=== PATIENT | male | born 1965 | race Caucasian/White ===

== ENCOUNTER 2017-11-03 02:53 | Emergency (ER) | payer OTHER ==
[~2017-11-03] VITALS: Ht 177.8 cm; Wt 105.1 kg
[~2017-11-03 02:53] MED LIST: states no home meds
[2017-11-03 02:58] VITALS: TEMP 37; Ht 177.8 cm; Wt 105.1 kg
[2017-11-03] MEDS ORDERED: IBUPROFEN 200 MG/10 ML UDC PO STA (03:09)
[2017-11-03] MEDS ORDERED: ACETAMINOPHEN SUSP 160 MG/5 ML UDC PO ONE (03:15)
[2017-11-03 04:27] VITALS: BP 143/89; PULSE 101; O2SAT 96
--- NOTE | 2017-11-03 06:40 | DIAGNOSTIC IMAGING REPORT ---
R SHOULDER MIN 2 VIEWS ROUTINE HISTORY: 52 years-old Male right shoulder injury acute right shoulder pain COMPARISON: Chest 9 radiograph 03/15/2017 TECHNIQUE: 2 views of the right shoulder FINDINGS: Mild degenerative changes of the glenohumeral and AC joints. Mild spurring of the greater tuberosity. No acute fracture or dislocation. Imaged lung gutierrez and soft tissues are unremarkable. IMPRESSION: Mild degenerative changes without acute fracture or dislocation. The above report was generated using voice recognition software. It may contain grammatical, syntax or spelling errors. Electronically signed by: Ty Sheldon M.D. 11/03/2017 6:39 AM Dictated Date/Time: 11/03/2017 6:38 AM
--- NOTE | 2017-11-03 23:46 | EMERGENCY ROOM VISIT NOTE ---
ED Visit Note First contact with patient: 03:01 CHIEF COMPLAINT: Shoulder pain HISTORY OF PRESENT ILLNESS: This 52 year old male patient presents to the emergency department complaining of pain in the right shoulder for the past few hours. The patient states that he was lifting a box at work when he began having pain in the right shoulder. He is having difficulty with range of motion because of the pain. The pain is moderate, constant and increases with motion of the hand and arm. The patient states the pain is dull and 6/10. The patient has taken nothing for relief of the pain. No previous significant previous shoulder disease or injury. No numbness or tingling. No neck and no back pain. No chest pain or shortness of breath. No abdominal pain or nausea/ vomiting. No cough. REVIEW OF SYSTEMS: A 6 system review of systems was performed with positives and pertinent negatives in the HPI. ALLERGIES: No known allergies MEDICATIONS: See EMR PMH: See EMR SOCIAL HISTORY: Employed and lives locally PHYSICAL EXAM: Vital Signs: Reviewed nurse's notes, vital signs stable. GENERAL : White male, in no acute distress, but appears to be in pain, well-developed, well-nourished. MUSCULOSKELETAL: There is no deformity in the contour of the right shoulder and there are no yfn deformities noted. There is no sulcus sign. There is tenderness over the infraspinatus distribution. The patient's range of motion is limited with abduction and external rotation. Supraspinatus strength 3/5. There is no clavicle tenderness. No tenderness of the humerus, elbow, wrist, or hand. 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 Radial pulse 2+. NECK: No tenderness to palpation over the cervical spine. HEART: Regular rate and rhythm without murmurs gallops or rubs. LUNGS: Clear to auscultation bilaterally without wheezes, rales or rhonchi. No accessory muscle use. No retractions. NEURO: The patient is alert and oriented to person, place, and time. Normal sensation to light and sharp touch. Capillary refill less than 2 seconds. R SHOULDER MIN 2 VIEWS ROUTINE HISTORY: 52 years-old Male right shoulder injury acute right shoulder pain COMPARISON: Chest 9 radiograph 03/15/2017 TECHNIQUE: 2 views of the right shoulder FINDINGS: Mild degenerative changes of the glenohumeral and AC joints. Mild spurring of the greater tuberosity. No acute fracture or dislocation. Imaged lung gutierrez and soft tissues are unremarkable. IMPRESSION: Mild degenerative changes without acute fracture or dislocation EMERGENCY DEPARTMENT COURSE: Physical exam and history were performed. Nursing notes and EMR were reviewed. The patient appears to have right shoulder pain after lifting at work. X-ray was obtained and does not show acute fracture or dislocation. The patient was placed in an arm sling and given ibuprofen and Tylenol for comfort. He appears well for discharge home, and will need to follow with Workmen's Compensation for ongoing care and evaluation. He was otherwise invited back to the ER with any new, worsening, or concerning symptoms. Current/Historical Medications Miscellaneous Medications [states no home meds] Allergies Coded Allergies: No Known Allergies (Unverified , 03/15/12) Vital Signs Date Time Temp Pulse Resp B/P (MAP) Pulse Ox O2 Delivery O2 Flow Rate FiO2 11/03/17 04:27 101 16 143/89 96 Room Air 11/03/17 02:58 37.0 112 19 150/95 96 Room Air Medications Administered Medications (Trade) Dose Ordered Sig/Mariposa Route Start Time Stop Time Status Last Admin Dose Admin Acetaminophen (Tylenol Children'S Susp) 640 mg NOW ONCE PO 11/03/17 03:15 11/03/17 03:16 DC 11/03/17 03:22 640 MG Ibuprofen (Motrin Susp) 400 mg NOW STAT PO 11/03/17 03:09 11/03/17 03:11 DC 11/03/17 03:21 400 MG Departure Information Impression Primary Impression: Injury of right shoulder Dispostion Home / Self-Care Condition GOOD Forms HOME CARE DOCUMENTATION FORM, Work Instructions, Additional Instructions: Patient was seen and evaluated today in the emergency department fo medical care. May not use right arm until cleared by Workmen' Compensation. IMPORTANT VISIT INFORMATION Patient Instructions My [facility] Additional Instructions You were seen and evaluated today on an emergency basis only. This is not a substitute for, or an effort to provide, complete comprehensive medical care. It is not possible to recognize and treat all injuries or illnesses in a single emergency department visit. For this reason it is recommended that you followup with your Workmen's Compensation provider for ongoing care and evaluation. For baseline pain relief you may alternate ibuprofen and acetaminophen every 4 hours for pain control. Take 600 mg ibuprofen (Advil) and then 4 hours later take 1000 mg acetaminophen (Tylenol). Do not take more than 3000 mg acetaminophen in a single day. Use your arm sling for comfort. You are welcome to return to the emergency department anytime with new, worsening, or concerning symptoms. Work Instructions Additional Work Instructions: Patient was seen and evaluated today in the emergency department for medical care. May not use right arm until cleared by Workmen's Compensation.
== END 2017-11-03 04:30 | disposition home or self-care (01) ==
LOC: C.EDB 02:55 → C.EDA 04:30
DX: S49.91XA Unspecified injury of right shoulder and upper arm, initial encounter (principal); X58.XXXA Exposure to other specified factors, initial encounter; Y93.89 Activity, other specified; Y99.0 Civilian activity done for income or pay

== ENCOUNTER 2021-04-23 11:03 | Inpatient (IN) ==
[2021-04-23 11:46] LABS: Basophils # (auto) 0.02 K/uL (0-0.2); Basophils % (auto) 0.3 %; Eosinophils % (auto) 1.3 %; Hematocrit (blood only) 44.1 % (42-52); Hemoglobin 15.5 g/dL (14.0-18.0); Immature Granulocytes # (auto) 0.03 K/uL (0.00-0.02); Immature Granulocytes % (auto) 0.4 %; Lymphocytes # (auto) 2.73 K/uL (1.2-3.4); Lymphocytes % (auto) 34.3 %; Mean Corpuscular Hemoglobin 32.6 pg (25-34); Mean Corpuscular Hgb Conc 35.1 g/dL (32-36); Mean Corpuscular Volume 92.8 fL (80-100); Mean Platelet Volume 9.9 fL (7.4-10.4); Monocytes # (auto) 0.72 K/uL (0.11-0.59); Neutrophils # (auto) 4.37 K/uL (1.4-6.5); Neutrophils % (auto) 54.7 %; Platelet Count 250 K/uL (130-400); RDW Coefficient of Variation 13.1 % (11.5-14.5); RDW Standard Deviation 44.9 fL (36.4-46.3); Red Blood Count 4.75 M/uL (4.7-6.1); White Blood Count 7.97 K/uL (4.8-10.8)
[2021-04-23 12:08] LABS: Alanine Aminotransferase 36 U/L (12-78); Albumin Level 3.9 gm/dl (3.4-5.0); Aspartate Aminotransferase 23 U/L (15-37); BUN Creatinine Ratio 16.1 (10-20); Blood Urea Nitrogen 13 mg/dl (7-18); Calcium 9.3 mg/dl (8.5-10.1); Carbon Dioxide 26 mmol/L (21-32); Chloride 108 mmol/L (98-107); Creatinine Clr Calc Pharmacy 123.6 ml/min; Est GFR (African American) 115.1 ml/min; Est GFR (Non-African American) 99.4 ml/min; Glucose 115 mg/dl (70-99); Potassium 3.5 mmol/L (3.5-5.1); Sodium 140 mmol/L (136-145)
[2021-04-23] MEDS ORDERED: SODIUM CHLORIDE 0.9% 1000ML 2,000 ML IV ONE (12:11)
[2021-04-23] MEDS ORDERED: MECLIZINE HCL 25 MG TAB PO STA (12:13)
--- NOTE | 2021-04-23 12:17 | Emergency Department Note ---
Impression & Plan CVA (cerebral vascular accident), HTN (hypertension), High serum chloride ED Provider Note NAME: ASTER HAGAN AGE: 55 SEX: M : 1965 ARRIVES VIA: Walk-In INFORMANT: Patient ED PROVIDER(S): Brooks Bryan DO CHIEF COMPLAINT: Dizzy HPI: Patient is a 55-year-old male who presents to the ER for dizziness. This started yesterday around 8 PM when he woke up from sleeping. He took his lisinopril around 2 PM[address] works ct mri technologist. Dizziness has been persistent and is worse with movement. He notes he has trouble following anything. He does admit to nausea but no vomiting. Denies any weakness or numbness in the arms or legs. He notes that his head feels like a 50 pound weight. Denies any chest pain and shortness of breath. No dysuria, urgency or frequency. No trauma. No other exacerbating or remitting factors. Denies ringing in the ears. ROS: See above HPI for pertinent positives & negatives. A total of 10 systems reviewed and were otherwise negative. PAST MEDICAL HISTORY:See Below PAST SURGICAL HISTORY:See Below FAMILY HISTORY:See Below SOCIAL HISTORY:See Below HOME MEDICATIONS:See Below ALLERGIES:See Below VITALS:See Below PHYSICAL EXAMINATION: GENERAL: Sitting up in bed, alert, well appearing, well nourished, no distress, non-toxic EYE EXAM: normal conjunctiva. PERRL and nystagmus and difficulty following figners OROPHARYNX: no exudate, no erythema, lips, buccal mucosa, and tongue normal and mucous membranes are moist NECK: supple, no nuchal rigidity, no adenopathy, non-tender LUNGS: Clear to auscultation. Normal chest wall mechanics HEART: no murmurs, S1 normal and S2 normal ABDOMEN: abdomen soft, non-tender, normo-active bowel sounds, no masses, no rebound or guarding. BACK: Back is symmetrical on inspection and there is no deformity, no midline tenderness, no CVA tenderness. SKIN: no rashes and no bruising UPPER EXTREMITIES: upper extremities are grossly normal. LOWER EXTREMITIES: No pitting edema. NEURO EXAM: Normal sensorium, cranial nerves II-XII intact, normal speech, no weakness of arms, no weakness of legs. No drift. Finger to nose intact. Gross sensation intact. Qyfr-[id number] intact. Rapid alternating movements of upper extremities intact. MEDICAL DECISION MAKING: Patient is a 55-year-old male who presents the ER for dizziness. IV was established blood work was obtained. Symptoms have been present for over 24 hours. Labs show no significant leukocytosis or anemia. INR was unremarkable. BMP with slightly elevated chloride. LFTs bilirubin was unremarkable. TSH was unremarkable. Troponin was negative. Covid was negative. CT of the head neck suggest a cerebellar stroke which is consistent with physical exam. He was given Valium and Antivert and fluids. He was updated bedside. Discussed with the hospitalist for further evaluation. Triage Nursing notes reviewed. Limited review of prior medical records performed Vital Signs: reviewed and remarkable for HTN Differential diagnosis: Differential diagnosis includes etiologies such as benign positional vertigo, dehydration, hypovolemia, anemia, tumor, infection, hypoglycemia, electrolyte abnormalities, cardiac sources, intracerebral event, toxicologic, neurological, as well as others were entertained. ER treatment provided: See below Diagnostics interpreted by me: ECG: Sinus rhythm at 72 Normal axis No PVCs QTC 427 Cardiac Monitoring: An order was placed for continuous cardiac monitoring. The monitor shows a rate of 70 with sinus rhythm. Laboratory studies: As stated above and show below. Imaging studies: CT angios the head and neck show cerebellar infarct Consultation(s): Discussed with the hospitalist for further evaluation Procedures: none Critical Care: None Past Med/Surg History Medical History (Updated 04/23/21 @ 18:12 by Brooks Bryan DO) HLD (hyperlipidemia) HTN (hypertension) IBS (irritable bowel syndrome) Pre-diabetes Surgical History (Updated 04/23/21 @ 13:56 by Sabrina Solitario PA-C) History of colonoscopy Family History (Updated 04/23/21 @ 14:28 by Sabrina Solitario PA-C) Father Hypertension Social History (Updated 04/23/21 @ 14:28 by Sabrina Solitario PA-C) Smoking Status: Never smoker Second Hand Exposure: No; Do You Dip or Chew Tobacco: No; Tobacco Cessation Education Requested by Patient: No Hx Alcohol Use: No Hx Substance Use: No Preferred Language: Swedish Communication Ability: Effective Bedspread Seamer Required: No Beliefs That Will Affect Care: None Current Living Situation: Alone Other Information That Helps Us Care for You: No Feels Safe at Home: Yes Safety Concerns: Feels Safe At This Time Assistive Devices: None Allergies Allergies Allergy/AdvReac Type Severity Reaction Status Date / Time No Known Allergies Allergy Unverified 04/23/21 12:07 Home Meds Home Medications Medication Instructions Recorded Confirmed losartan-hydrochlorothiazide 1 tab PO DAILY 04/23/21 04/23/21 Results & Data (ED) Vital Signs Vital Signs - 24 hr 04/23/21 11:19 04/23/21 11:37 04/23/21 12:21 Temperature 36.5 C Temperature Source Oral Pulse Rate - Lying Pulse Rate - Sitting Pulse Rate - Standing Pulse Rate 64 79 70 Pulse Rate from SpO2 Sensor 79 70 Pulse Rhythm Regular Pulse Strength Normal Respiratory Rate 20 30 H 29 H Respiratory Effort / Characteristics Non-Labored Spontaneous Respiratory Depth Normal Respiratory Pattern Regular Blood Pressure - Lying Blood Pressure - Sitting Blood Pressure- Standing Blood Pressure 160/96 H 166/97 H 142/87 H Blood Pressure Mean 117 120 105 Pulse Oximetry 100 100 100 Oxygen Delivery Method Room Air Room Air Room Air Sepsis Recent Fever Within 48 Hours No Sepsis New/Unexplained Change in Mental Status N/A Sepsis Action Taken by Nursing No Action Required 04/23/21 12:40 04/23/21 13:00 04/23/21 13:30 Temperature Temperature Source Pulse Rate - Lying Pulse Rate - Sitting Pulse Rate - Standing Pulse Rate 72 65 52 L Pulse Rate from SpO2 Sensor 72 65 51 L Pulse Rhythm Pulse Strength Respiratory Rate 23 19 10 L Respiratory Effort / Characteristics Respiratory Depth Respiratory Pattern Blood Pressure - Lying Blood Pressure - Sitting Blood Pressure- Standing Blood Pressure 159/96 H 160/90 H 163/81 H Blood Pressure Mean 117 113 108 Pulse Oximetry 100 100 95 Oxygen Delivery Method Room Air Room Air Room Air Sepsis Recent Fever Within 48 Hours Sepsis New/Unexplained Change in Mental Status Sepsis Action Taken by Nursing 04/23/21 13:40 04/23/21 13:41 Temperature Temperature Source Pulse Rate - Lying 64 Pulse Rate - Sitting 73 Pulse Rate - Standing 74 Pulse Rate 68 Pulse Rate from SpO2 Sensor 70 Pulse Rhythm Pulse Strength Respiratory Rate 21 Respiratory Effort / Characteristics Respiratory Depth Respiratory Pattern Blood Pressure - Lying 161/90 H Blood Pressure - Sitting 164/98 H Blood Pressure- Standing 162/103 H Blood Pressure 161/90 H Blood Pressure Mean 113 Pulse Oximetry 100 Oxygen Delivery Method Room Air Sepsis Recent Fever Within 48 Hours Sepsis New/Unexplained Change in Mental Status Sepsis Action Taken by Nursing Laboratory Data Result diagrams: 04/23/21 11:36 04/23/21 11:36 Lab Results 04/23/21 04/23/21 04/23/21 Range/Units 11:36 11:36 12:46 WBC 7.97 (4.8-10.8) K/uL RBC 4.75 (4.7-6.1) M/uL Hgb 15.5 (14.0-18.0) g/dL Hct 44.1 (42-52) % MCV 92.8 (80-100) fL MCH 32.6 (25-34) pg MCHC 35.1 (32-36) g/dL RDW Std Deviation 44.9 (36.4-46.3) fL RDW Coeff of Dinesh 13.1 (11.5-14.5) % Plt Count 250 (130-400) K/uL MPV 9.9 (7.4-10.4) fL Immature Gran % (Auto) 0.4 % Neut % (Auto) 54.7 % Lymph % (Auto) 34.3 % Hendry % (Auto) 9.0 % Eos % (Auto) 1.3 % Baso % (Auto) 0.3 % Neut # (Auto) 4.37 (1.4-6.5) K/uL Lymph # (Auto) 2.73 (1.2-3.4) K/uL Hendry # (Auto) 0.72 H (0.11-0.59) K/uL Eos # (Auto) 0.10 (0-0.5) K/uL Baso # (Auto) 0.02 (0-0.2) K/uL Immature Gran # (Auto) 0.03 H (0.00-0.02) K/uL PT 10.4 (9.0-12.0) Seconds INR 1.0 (0.9-1.1) Sodium 140 (136-145) mmol/L Potassium 3.5 (3.5-5.1) mmol/L Chloride 108 H (98-107) mmol/L Carbon Dioxide 26 (21-32) mmol/L Anion Gap 6.0 (3-11) BUN 13 (7-18) mg/dl Creatinine 0.81 (0.6-1.4) mg/dl Est Cr Clr Drug Dosing 123.6 ml/min Est GFR ( Amer) 115.1 ml/min Est GFR (Non-Af Amer) 99.4 ml/min BUN/Creatinine Ratio 16.1 (10-20) Glucose 115 H (70-99) mg/dl Calcium 9.3 (8.5-10.1) mg/dl Total Bilirubin 0.2 (0.2-1) mg/dl AST 23 (15-37) U/L ALT 36 (12-78) U/L Alkaline Phosphatase 61 (45-117) U/L Troponin I < 0.015 (0-0.045) ng/ml Total Protein 7.7 (6.4-8.2) gm/dl Albumin 3.9 (3.4-5.0) gm/dl Globulin 3.8 (2.5-4.0) gm/dl Albumin/Globulin Ratio 1.0 (0.9-2) TSH 2.010 (0.300-4.500) uIu/ml COVID-19 Eval Order SARS-CoV-2 (PCR) (Negative) 04/23/21 04/23/21 Range/Units 13:36 13:36 WBC (4.8-10.8) K/uL RBC (4.7-6.1) M/uL Hgb (14.0-18.0) g/dL Hct (42-52) % MCV (80-100) fL MCH (25-34) pg MCHC (32-36) g/dL RDW Std Deviation (36.4-46.3) fL RDW Coeff of Dinesh (11.5-14.5) % Plt Count (130-400) K/uL MPV (7.4-10.4) fL Immature Gran % (Auto) % Neut % (Auto) % Lymph % (Auto) % Hendry % (Auto) % Eos % (Auto) % Baso % (Auto) % Neut # (Auto) (1.4-6.5) K/uL Lymph # (Auto) (1.2-3.4) K/uL Hendry # (Auto) (0.11-0.59) K/uL Eos # (Auto) (0-0.5) K/uL Baso # (Auto) (0-0.2) K/uL Immature Gran # (Auto) (0.00-0.02) K/uL PT (9.0-12.0) Seconds INR (0.9-1.1) Sodium (136-145) mmol/L Potassium (3.5-5.1) mmol/L Chloride (98-107) mmol/L Carbon Dioxide (21-32) mmol/L Anion Gap (3-11) BUN (7-18) mg/dl Creatinine (0.6-1.4) mg/dl Est Cr Clr Drug Dosing ml/min Est GFR ( Amer) ml/min Est GFR (Non-Af Amer) ml/min BUN/Creatinine Ratio (10-20) Glucose (70-99) mg/dl Calcium (8.5-10.1) mg/dl Total Bilirubin (0.2-1) mg/dl AST (15-37) U/L ALT (12-78) U/L Alkaline Phosphatase (45-117) U/L Troponin I (0-0.045) ng/ml Total Protein (6.4-8.2) gm/dl Albumin (3.4-5.0) gm/dl Globulin (2.5-4.0) gm/dl Albumin/Globulin Ratio (0.9-2) TSH (0.300-4.500) uIu/ml COVID-19 Eval Order Covid19 at [facility] SARS-CoV-2 (PCR) NEGATIVE (Negative) Administered Medications Discontinued Medications Aspirin (Aspirin 81 Mg Chew) 324 mg PO NOW STA Stop: 04/23/21 14:18 Last Admin: 04/23/21 15:01 Dose: 324 mg Documented by: [id number] Diazepam (Diazepam 5 Mg/Ml Inj 10ml Vial) 2 mg IV NOW STA Stop: 04/23/21 12:14 Last Admin: 04/23/21 12:29 Dose: 2 mg Documented by: [id number] Sodium Chloride (Nss 1000ml) 2,000 mls @ 999 mls/hr IV .Q2H1M ONE Stop: 04/23/21 14:11 Last Infusion: 04/23/21 14:34 Dose: 0 mls/hr Documented by: [id number] Admin: 04/23/21 12:29 Dose: 999 mls/hr Documented by: [id number] Ioversol (Optiray 320 125ml) 120 ml IV ONCE ONE Stop: 04/23/21 12:32 Last Admin: 04/23/21 12:31 Dose: 120 ml Documented by: [id number] Meclizine HCl (Meclizine Hcl 25 Mg Tab) 25 mg PO NOW STA Stop: 04/23/21 12:14 Last Admin: 04/23/21 12:29 Dose: 25 mg Documented by: [id number] Imaging Data Radiologist's Impression: Chest X-Ray 04/23/21 12:11 XR chest 1V portable HISTORY: 55 years-old Male dizzy acute dizziness COMPARISON: Chest radiograph 03/15/2012 TECHNIQUE: Portable AP view the chest FINDINGS: Cardiomediastinal and hilar silhouettes are within normal limits. No pneumothorax, pleural effusion, airspace consolidation or overt pulmonary edema. The bones of the chest appear grossly intact. IMPRESSION: No acute process. ACT 112: Negative or not required by law. The above report was generated using voice recognition software. It may contain grammatical, syntax or spelling errors. Electronically signed by: Tuan Sheldon M.D. 04/23/2021 12:55 PM Head CTA 04/23/21 12:11 CT angio neck with con, CT angio head wo/w CLINICAL HISTORY: 55 years-old Male with dizzy. Acute dizziness COMPARISON STUDY: None TECHNIQUE: Following the IV administration of 120 mL of Optiray, CT angiogram of the head and neck was performed from the aortic arch to the skull apex. Images are reviewed in the axial, sagittal, and coronal planes. 3-D MIPS images are created and assessed. IV contrast was administered without complication. All measurements were calculated based on NASCET criteria. Noncontrast head CT also obtained. A dose lowering technique was utilized adhering to the principles of ALARA. CT DOSE: 1267.00 mGy.cm FINDINGS: CT HEAD: No acute intracranial hemorrhage, midline shift, abnormal extra-axial collection, hydrocephalus, acute territorial infarct or intracranial mass. Cerebral vascular calcifications. There is an ill-defined 6 mm hypodense focus of the left cerebellar hemisphere. No acute calvarial fracture. The mastoid air cells and middle ear cavities are clear. Polypoid mucosal thickening of the left maxillary sinus measures 2 cm. Unremarkable soft tissues and orbits. CTA HEAD AND NECK: Three-vessel morphology of the thoracic aortic arch. Patency of the innominate and imaged subclavian arteries. Patent common carotid arteries. Mild atheros clerotic plaque of the left carotid bulb without significant stenosis. The internal carotid arteries are patent. Mild calcified plaque of the clinoid and supraclinoid segments. The middle and anterior cerebral arteries are patent. Codominant and widely patent vertebral arteries. Focal area of atherosclerotic plaque involves the V2 segment left vertebral artery at the level of C3 resulting in mild luminal narrowing. Additional atherosclerotic plaque involves the V4 segment left vertebral artery without significant stenosis. The basilar and posterior cerebral arteries are patent. Cerebral venous sinuses are patent. There is no abnormal intracranial enhancement identified. Lung apices are clear. Unremarkable soft tissues. Degenerative changes of the spine. IMPRESSION: 1. No acute intracranial hemorrhage, midline shift or acute territorial infarct. 2. Subcentimeter hypodensity of the left cerebellar hemisphere is suggestive of an age-indeterminate lacunar infarct. 3. Mild atherosclerotic vascular disease. No aneurysm, dissection, high-grade stenosis or arterial occlusion 4. Maxillary sinus disease. ACT 112: Negative or not required by law. The above report was generated using voice recognition software. It may contain grammatical, syntax or spelling errors. Electronically signed by: Tuan Sheldon M.D. 04/23/2021 12:54 PM Neck CTA 04/23/21 12:11 CT angio neck with con, CT angio head wo/w CLINICAL HISTORY: 55 years-old Male with dizzy. Acute dizziness COMPARISON STUDY: None TECHNIQUE: Following the IV administration of 120 mL of Optiray, CT angiogram of the head and neck was performed from the aortic arch to the skull apex. Images are reviewed in the axial, sagittal, and coronal planes. 3-D MIPS images are created and assessed. IV contrast was administered without complication. All measurements were calculated based on NASCET criteria. Noncontrast head CT also obtained. A dose lowering technique was utilized adhering to the principles of ALARA. CT DOSE: 1267.00 mGy.cm FINDINGS: CT HEAD: No acute intracranial hemorrhage, midline shift, abnormal extra-axial collection, hydrocephalus, acute territorial infarct or intracranial mass. Cerebral vascular calcifications. There is an ill-defined 6 mm hypodense focus of the left cerebellar hemisphere. No acute calvarial fracture. The mastoid air cells and middle ear cavities are clear. Polypoid mucosal thickening of the left maxillary sinus measures 2 cm. Unremarkable soft tissues and orbits. CTA HEAD AND NECK: Three-vessel morphology of the thoracic aortic arch. Patency of the innominate and imaged subclavian arteries. Patent common carotid arteries. Mild atherosclerotic plaque of the left carotid bulb without significant stenosis. The internal carotid arteries are patent. Mild calcified plaque of the clinoid and supraclinoid segments. The middle and anterior cerebral arteries are patent. Codominant and widely patent vertebral arteries. Focal area of atherosclerotic plaque involves the V2 segment left vertebral artery at the level of C3 resulting in mild luminal narrowing. Additional atherosclerotic plaque involves the V4 segment left vertebral artery without significant stenosis. The basilar and posterior cerebral arteries are patent. Cerebral venous sinuses are patent. There is no abnormal intracranial enhancement identified. Lung apices are clear. Unremarkable soft tissues. Degenerative changes of the spine. IMPRESSION: 1. No acute intracranial hemorrhage, midline shift or acute territorial infarct. 2. Subcentimeter hypodensity of the left cerebellar hemisphere is suggestive of an age-indeterminate lacunar infarct. 3. Mild atherosclerotic vascular disease. No aneurysm, dissection, high-grade stenosis or arterial occlusion 4. Maxillary sinus disease. ACT 112: Negative or not required by law. The above report was generated using voice recognition software. It may contain grammatical, syntax or spelling errors. Electronically signed by: Tuan Sheldon M.D. 04/23/2021 12:54 PM Discharge Plan Visit Data Chief Complaint: Dizziness Stated Complaint: DIZZY,CANT WALK ED Provider: Brooks Bryan Discharge Problem: CVA (cerebral vascular accident), HTN (hypertension), High serum chloride Patient Disposition: Admitted As Inpatient Discharge Instructions Interventions: ED Discharge Assessment Last Done: 04/23/21 16:28 Discharge Problem: CVA (cerebral vascular accident) Qualifiers: CVA mechanism: unspecified Qualified Code(s): I63.9 - Cerebral infarction, unspecified HTN (hypertension) Qualifiers: Hypertension type: unspecified Qualified Code(s): I10 - Essential (primary) hypertension
[2021-04-23 12:18] LABS: Alkaline Phosphatase 61 U/L (45-117); Bilirubin,Total 0.2 mg/dl (0.2-1); Globulin 3.8 gm/dl (2.5-4.0); Total Protein 7.7 gm/dl (6.4-8.2); Troponin I < 0.015 ng/ml (0-0.045)
[2021-04-23] MEDS ORDERED: OPTIRAY 320 125ml IV ONE (12:31)
--- NOTE | 2021-04-23 12:56 | CT Scan Report ---
CT angio neck with con, CT angio head wo/w CLINICAL HISTORY: 55 years-old Male with dizzy. Acute dizziness COMPARISON STUDY: None TECHNIQUE: Following the IV administration of 120 mL of Optiray, CT angiogram of the head and neck wa s performed from the aortic arch to the skull apex. Images are reviewed in the axial, sagittal, and c oronal planes. 3-D MIPS images are created and assessed. IV contrast was administered without complic ation. All measurements were calculated based on NASCET criteria. Noncontrast head CT also obtained. A dose lowering technique was utilized adhering to the principles of ALARA. CT DOSE: 1267.00 mGy.cm FINDINGS: CT HEAD: No acute intracranial hemorrhage, midline shift, abnormal extra-axial collection, hydrocephalus, acut e territorial infarct or intracranial mass. Cerebral vascular calcifications. There is an ill-defined 6 mm hypodense focus of the left cerebellar hemisphere. No acute calvarial fracture. The mastoid air cells and middle ear cavities are clear. Polypoid mucosal thickening of the left maxillary sinus vashti sures 2 cm. Unremarkable soft tissues and orbits. CTA HEAD AND NECK: Three-vessel morphology of the thoracic aortic arch. Patency of the innominate and imaged subclavian arteries. Patent common carotid arteries. Mild atherosclerotic plaque of the left carotid bulb withou t significant stenosis. The internal carotid arteries are patent. Mild calcified plaque of the clinoi d and supraclinoid segments. The middle and anterior cerebral arteries are patent. Codominant and wid jseus patent vertebral arteries. Focal area of atherosclerotic plaque involves the V2 segment left vert ebral artery at the level of C3 resulting in mild luminal narrowing. Additional atherosclerotic plaqu e involves the V4 segment left vertebral artery without significant stenosis. The basilar and posteri or cerebral arteries are patent. Cerebral venous sinuses are patent. There is no abnormal intracrania l enhancement identified. Lung apices are clear. Unremarkable soft tissues. Degenerative changes of the spine. IMPRESSION: 1. No acute intracranial hemorrhage, midline shift or acute territorial infarct. 2. Subcentimeter hypodensity of the left cerebellar hemisphere is suggestive of an age-indeterminate lacunar infarct. 3. Mild atherosclerotic vascular disease. No aneurysm, dissection, high-grade stenosis or arterial oc clusion 4. Maxillary sinus disease. ACT 112: Negative or not required by law. The above report was generated using voice recognition software. It may contain grammatical, syntax o r spelling errors. Electronically signed by: Taun Sheldon M.D. 04/23/2021 12:54 PM
--- NOTE | 2021-04-23 12:56 | XRay Report ---
XR chest 1V portable HISTORY: 55 years-old Male dizzy acute dizziness COMPARISON: Chest radiograph 03/15/2012 TECHNIQUE: Portable AP view the chest FINDINGS: Cardiomediastinal and hilar silhouettes are within normal limits. No pneumothorax, pleural effusion, airspace consolidation or overt pulmonary edema. The bones of the chest appear grossly intact. IMPRESSION: No acute process. ACT 112: Negative or not required by law. The above report was generated using voice recognition software. It may contain grammatical, syntax o r spelling errors. Electronically signed by: Tuan Sheldon M.D. 04/23/2021 12:55 PM
[2021-04-23 13:06] LABS: Prothrombin Time 10.4 Seconds (9.0-12.0)
--- NOTE | 2021-04-23 13:54 | History & Physical Report ---
Date of Service April 23, 2021 Assessment & Plan (1) Dizziness: (2) CVA (cerebral vascular accident): Patient is 35-year-old male with PMH HTN, HLD, prediabetes, IBS presented to ER with complaint of dizziness started yesterday at 8 PM described as room spinning. In ER Vitals stable. CTA head/neck: Subcentimeter hypodensity of the left cerebellar hemisphere is suggestive of an age-indeterminate lacunar infarct. -Tele to monitor for arrhythmias -Lipid and A1c in am -MRI brain -echo with bubble study -aspiration precautions -PT/OT consult -start statin, aspirin, plavix -allow permissive HTN, labetalol SBP>220 or DBP>120 in 1st 24 hrs -neurology consult (3) HTN (hypertension): -Hold home lisinopril/HCTZ at this time and allow for permissive hypertension (4) HLD (hyperlipidemia): -Lipid panel in a.m. -Starting atorvastatin (5) Pre-diabetes: A1c: 6.1 in 02/03/2021 -A1c in a.m. DVT Prophylaxis -SCDs Full Code as per discussion with pt Follows with Dr Lechuga for routine care Pt was seen and care coordinated with Dr Cardona. See addendum History of Present Illness Chief Complaint: Dizziness Primary Care Provider: Sebastián Lechuga MD Patient is 35-year-old male with PMH HTN, HLD, prediabetes, IBS presented to ER with complaint of dizziness started yesterday. Patient states that 8 PM yesterday he started with dizziness described as room spinning. States room was spinning so much he felt that his vision was blurry. Reports was having trouble ambulating as he dizzy and was swaying [id number] with walking. Symptoms lasted throughout the night and into today and presented to ER. Patient states this morning had mild headache which has since resolved. Denies any head injury or trauma. Denies any associated vomiting. 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 Denies recreational drug use, other OTC medication use. Patient reports in November had an episode of vertigo type dizziness which did not last very long and self resolved. Denies fever/chills, diaphoresis, vomiting, diarrhea, constipation, syncope, vision loss, neck pain, CP, SOB, orthopnea, palpitations, cough, sore throat, choking, otalgia, rhinorrhea, abdominal pain, paresthesias, weakness, extremity weakness, extremity edema, rashes, urinary symptoms. Allergies Allergy/AdvReac Type Severity Reaction Status Date / Time No Known Allergies Allergy Unverified 04/23/21 12:07 Home Medications Medication Instructions Recorded Confirmed Type losartan-hydrochlorothiazide 1 tab PO DAILY 04/23/21 04/23/21 History Past Med/Surg History Medical History (Updated 04/23/21 @ 18:12 by Brooks Bryan DO) HLD (hyperlipidemia) HTN (hypertension) IBS (irritable bowel syndrome) Pre-diabetes Surgical History (Updated 04/23/21 @ 13:56 by Sabrina Solitario PA-C) History of colonoscopy Family History (Updated 04/23/21 @ 14:28 by Sabrina Solitario PA-C) Father Hypertension Social History (Updated 04/23/21 @ 14:28 by Sabrina Solitario PA-C) Smoking Status: Never smoker Second Hand Exposure: No; Do You Dip or Chew Tobacco: No; Tobacco Cessation Education Requested by Patient: No Hx Alcohol Use: No Hx Substance Use: No Preferred Language: Bulgarian Communication Ability: Effective Viscosity Tester Required: No Beliefs That Will Affect Care: None Current Living Situation: Alone Other Information That Helps Us Care for You: No Feels Safe at Home: Yes Safety Concerns: Feels Safe At This Time Assistive Devices: None Review of Systems Review of Systems: All systems reviewed & are unremarkable except as noted in HPI & below Physical Exam Physical Exam: General: no distress, WDWN Head: normocephalic, atraumatic Eyes: PERRL, EOM's intact, conjunctiva non-injected, anicteric ENT: normal inspection external ears, nose, mucous membranes moist Neck: supple, trachea midline Lungs: clear, no respiratory distress, no wheezing/rhonchi/rales CV: RRR, no murmur, no pretibial edema Abd: normal BS, soft, non-tender Ext: no cyanosis, no calf tenderness Neuro: A&O x 3, normal affect, No nystagmus noted at this time, Facial sensation is intact and symmetric, The face is strong and symmetric, Hearing grossly intact, Soft palate elevates symmetrically, no dysarthria, Shoulder shrug intact, Tongue is midline, normal movement, no fasciculations. Muscle tone normal. Strength 5/5 throughout Skin: warm, dry Results & Data Results & Data ([facility]) Vital Signs (Past 12 Hours) Vital Signs Temp Pulse Resp BP Pulse Ox 04/23/21 13:00 65 19 160/90 H 100 04/23/21 12:40 72 23 159/96 H 100 04/23/21 12:21 70 29 H 142/87 H 100 04/23/21 11:37 79 30 H 166/97 H 100 04/23/21 11:19 36.5 C 64 20 160/96 H 100 Laboratory Results Short CBC 04/23/21 Range/Units 11:36 WBC 7.97 (4.8-10.8) K/uL Hgb 15.5 (14.0-18.0) g/dL Hct 44.1 (42-52) % Plt Count 250 (130-400) K/uL BMP 04/23/21 11:36 Sodium 140 Potassium 3.5 Chloride 108 H Carbon Dioxide 26 BUN 13 Creatinine 0.81 Glucose 115 H Calcium 9.3 Cardiac Enzymes 04/23/21 Range/Units 11:36 Troponin I < 0.015 (0-0.045) ng/ml Liver Function 04/23/21 Range/Units 11:36 Total Bilirubin 0.2 (0.2-1) mg/dl AST 23 (15-37) U/L ALT 36 (12-78) U/L Alkaline Phosphatase 61 (45-117) U/L Albumin 3.9 (3.4-5.0) gm/dl Diagnostic Findings Chest X-Ray 04/23/21 12:11 XR chest 1V portable HISTORY: 55 years-old Male dizzy acute dizziness COMPARISON: Chest radiograph 03/15/2012 TECHNIQUE: Portable AP view the chest FINDINGS: Cardiomediastinal and hilar silhouettes are within normal limits. No pneumothorax, pleural effusion, airspace consolidation or overt pulmonary edema. The bones of the chest appear grossly intact. IMPRESSION: No acute process. ACT 112: Negative or not required by law. The above report was generated using voice recognition software. It may contain grammatical, syntax or spelling errors. Electronically signed by: Tuan Sheldon M.D. 04/23/2021 12:55 PM Head CTA 04/23/21 12:11 CT angio neck with con, CT angio head wo/w CLINICAL HISTORY: 55 years-old Male with dizzy. Acute dizziness COMPARISON STUDY: None TECHNIQUE: Following the IV administration of 120 mL of Optiray, CT angiogram of the head and neck was performed from the aortic arch to the skull apex. Images are reviewed in the axial, sagittal, and coronal planes. 3-D MIPS images are created and assessed. IV contrast was administered without complication. All measurements were calculated based on NASCET criteria. Noncontrast head CT also obtained. A dose lowering technique was utilized adhering to the principles of ALARA. CT DOSE: 1267.00 mGy.cm FINDINGS: CT HEAD: No acute intracranial hemorrhage, midline shift, abnormal extra-axial collection, hydrocephalus, acute territorial infarct or intracranial mass. Cerebral vascular calcifications. There is an ill-defined 6 mm hypodense focus of the left cerebellar hemisphere. No acute calvarial fracture. The mastoid air cells and middle ear cavities are clear. Polypoid mucosal thickening of the left maxillary sinus measures 2 cm. Unremarkable soft tissues and orbits. CTA HEAD AND NECK: Three-vessel morphology of the thoracic aortic arch. Patency of the innominate and imaged subclavian arteries. Patent common carotid arteries. Mild atherosclerotic plaque of the left carotid bulb without significant stenosis. The internal carotid arteries are patent. Mild calcified plaque of the clinoid and supraclinoid segments. The middle and anterior cerebral arteries are patent. Codominant and widely patent vertebral arteries. Focal area of atherosclerotic plaque involves the V2 segment left vertebral artery at the level of C3 resulting in mild luminal narrowing. Additional atherosclerotic plaque involves the V4 segment left vertebral artery without significant stenosis. The basilar and posterior cerebral arteries are patent. Cerebral venous sinuses are patent. There is no abnormal intracranial enhancement identified. Lung apices are clear. Unremarkable soft tissues. Degenerative changes of the spine. IMPRESSION: 1. No acute intracranial hemorrhage, midline shift or acute territorial infarct. 2. Subcentimeter hypodensity of the left cerebellar hemisphere is suggestive of an age-indeterminate lacunar infarct. 3. Mild atherosclerotic vascular disease. No aneurysm, dissection, high-grade stenosis or arterial occlusion 4. Maxillary sinus disease. ACT 112: Negative or not required by law. The above report was generated using voice recognition software. It may contain grammatical, syntax or spelling errors. Electronically signed by: Tuan Sheldon M.D. 04/23/2021 12:54 PM Neck CTA 04/23/21 12:11 CT angio neck with con, CT angio head wo/w CLINICAL HISTORY: 55 years-old Male with dizzy. Acute dizziness COMPARISON STUDY: None TECHNIQUE: Following the IV administration of 120 mL of Optiray, CT angiogram of the head and neck was performed from the aortic arch to the skull apex. Images are reviewed in the axial, sagittal, and coronal planes. 3-D MIPS images are created and assessed. IV contrast was administered without complication. All measurements were calculated based on NASCET criteria. Noncontrast head CT also obtained. A dose lowering technique was utilized adhering to the principles of ALARA. CT DOSE: 1267.00 mGy.cm FINDINGS: CT HEAD: No acute intracranial hemorrhage, midline shift, abnormal extra-axial collection, hydrocephalus, acute territorial infarct or intracranial mass. Cerebral vascular calcifications. There is an ill-defined 6 mm hypodense focus of the left cerebellar hemisphere. No acute calvarial fracture. The mastoid air cells and middle ear cavities are clear. Polypoid mucosal thickening of the left maxillary sinus measures 2 cm. Unremarkable soft tissues and orbits. CTA HEAD AND NECK: Three-vessel morphology of the thoracic aortic arch. Patency of the innominate and imaged subclavian arteries. Patent common carotid arteries. Mild atherosclerotic plaque of the left carotid bulb without significant stenosis. The internal carotid arteries are patent. Mild calcified plaque of the clinoid and supraclinoid segments. The middle and anterior cerebral arteries are patent. Codominant and widely patent vertebral arteries. Focal area of atherosclerotic plaque involves the V2 segment left vertebral artery at the level of C3 resulting in mild luminal narrowing. Additional atherosclerotic plaque involves the V4 segment left vertebral artery without significant stenosis. The basilar and posterior cerebral arteries are patent. Cerebral venous sinuses are patent. There is no abnormal intracranial enhancement identified. Lung apices are clear. Unremarkable soft tissues. Degenerative changes of the spine. IMPRESSION: 1. No acute intracranial hemorrhage, midline shift or acute territorial infarct. 2. Subcentimeter hypodensity of the left cerebellar hemisphere is suggestive of an age-indeterminate lacunar infarct. 3. Mild atherosclerotic vascular disease. No aneurysm, dissection, high-grade stenosis or arterial occlusion 4. Maxillary sinus disease. ACT 112: Negative or not required by law. The above report was generated using voice recognition software. It may contain grammatical, syntax or spelling errors. Electronically signed by: Tuan Sheldon M.D. 04/23/2021 12:54 PM ECG Rate (beats per minute): 72 Rhythm: sinus rhythm Code Status & VTE Plan VTE Prophylaxis Plan VTE Prophylaxis will be ordered: Yes Supervising Physician Co-Signing Physician Notes Patient is a 55-year-old male with history of hypertension, hyperlipidemia, prediabetes and other medical problems presents with history of dizziness since 2 days duration. Patient states having room spinning-like sensation associated with blurry vision intermittently. He also admits to have difficulty with ambulation secondary to dizziness. Denies any facial deformity, focal weakness, dysphagia, chest pain, shortness of breath. Please review HPI for complete details of presentation. On exam patient is obese, no apparent distress, normocephalic atraumatic, EOMI, lungs are clear to auscultation, normal breath sounds, S1-S2, no murmur, no pedal edema, abdomen soft, nontender, normal bowel sounds, alert, awake, oriented, grossly no focal neurological deficits. Patient is admitted for management of acute CVA. CT showed findings suggestive of left cerebellar hemisphere lacunar infarct. Check lipid panel, HbA1c. Will start on aspirin, Plavix, Lipitor. Agree with allowing permissive hypertension. Consulted neurology. Check orthostatics, fall precautions. Will obtain MRI brain. PT OT, speech therapy eval. I personally reviewed the record. Patient is interviewed and examined at bedside. Patient's care is coordinated with Sabrina Solitario PA-C. Please refer to the documentation above for details of patient's presentation and for discussion of other issues.
[2021-04-23] MEDS ORDERED: ASPIRIN 81 MG CHEW PO STA (14:17)
[2021-04-23] MEDS ORDERED: LABETALOL HCL IV 5 MG/ML 20ML IV PRN (17:17)
[2021-04-23] MEDS ORDERED: ACETAMINOPHEN 325 MG TAB PO PRN (17:17)
[2021-04-23] MEDS ORDERED: ONDANSETRON INJ 2 MG/ML 2 ML VIAL IV PRN (17:17)
[2021-04-23] MEDS ORDERED: PHARMACIST DISCHARGE MED REC CONSULT PRN (17:17)
[2021-04-23] MEDS ORDERED: GADOBUTROL 65ML VIAL IV ONE (18:40)
--- NOTE | 2021-04-23 20:16 | Magnetic Resonance Report ---
Brain MRI WITH AND WITHOUT CONTRAST HISTORY: Dizziness. Headache. TECHNIQUE: Multiplanar multisequence MRI of the brain was performed both before and after the intrave nous administration of contrast. COMPARISON STUDY: Head and neck CTA 04/23/2021. FINDINGS: There is no mass, hematoma, midline shift, or acute infarct. The paranasal sinuses are nicolas r. The mastoid air cells are clear. The ventricles and sulci demonstrate mild age-related involutiona l changes. Scattered foci of T2 hyperintensity seen within the periventricular and subcortical white matter are nonspecific but suggestive of mild microvascular ischemic changes. The major vascular flow voids at the skull base are well-maintained. There is a 1.9 cm retention cyst within the left maxill christopher sinus. The orbits are unremarkable. There are 2 old punctate lacunar infarction within the left c erebellar hemisphere. No abnormal enhancement. IMPRESSION: 1. No acute intracranial abnormality. 2. Scattered foci of T2 hyperintensity seen within the periventricular and subcortical white matter a re nonspecific but favor mild microvascular ischemic change. 3. Old punctate lacunar infarcts within the left cerebellar hemisphere. ACT 112: Negative or not required by law. Electronically signed by: Liu Rogers M.D. 04/23/2021 8:15 PM
--- NOTE | 2021-04-23 21:37 | Consultation Report ---
NEUROLOGY CONSULTATION DATE OF CONSULTATION: 04/23/2021. CHIEF COMPLAINT: Vertigo. HISTORY OF PRESENT ILLNESS: A 55-year-old male with a history of hypertension, presented to the Emergency Department this morning for new-onset vertigo. He had one similar episode of vertigo in the past, although the duration was much shorter. Symptoms started yesterday evening and persisted. He described it as the room was spinning. There was no positional component. Made walking difficult. He contacted his PCP this afternoon who recommended he go to the Emergency Department. He denies any prior history of stroke or myocardial infarction. He is not on aspirin. He works at [email or web address]. He is a nonsmoker and denies any heavy alcohol use. He otherwise denies any numbness, weakness or difficulty speaking. ALLERGIES: No known allergies. HOME MEDICATIONS: Losartan/hydrochlorothiazide 1 tablet daily. PAST MEDICAL HISTORY: Hypertension. PAST SURGICAL HISTORY: Colonoscopy. FAMILY HISTORY: Father has hypertension. SOCIAL HISTORY: He is a nonsmoker, denies any alcohol use. He works at [email or web address]. He feels safe at home. REVIEW OF SYSTEMS: Pertinent for vertigo. All other review of systems was unremarkable. PHYSICAL EXAMINATION: VITAL SIGNS: Blood pressure 160/100, pulse is 72, respiratory rate 17, temperature is 36.5 degrees Celsius, oxygen saturation 100% on room air. GENERAL: The patient appears his stated age, normally developed, in no acute distress. He is mildly overweight. HEENT: His head is normocephalic and atraumatic. He has normal eyelids and normal conjunctivae. NECK: Supple. LUNGS: Respiratory effort is normal. CARDIAC: Pulses are normal. ABDOMEN: Nondistended. SKIN: No skin rash. PSYCHIATRIC: Normal mood and normal affect. NEUROLOGIC: He is awake, alert, oriented to person, place, and time. His attention is normal. Knowledge is appropriate. He has no aphasia, no dysarthria. Pupils are symmetric. Extraocular muscles are intact without nystagmus. Facial sensation is intact. No facial asymmetry. Intact hearing. Palate is symmetric. Good shoulder shrug. Tongue midline. Gait evaluation deferred. No ataxia with [id number] testing or [id number] testing. He has no tremor or myoclonic jerks. Sensation is intact to light touch in the upper and lower extremities. Muscle tone is normal. Muscle examination is 5/5 in the upper and lower extremities. Reflexes show negative Babinski sign bilaterally, negative Caitlin sign. No ankle clonus. DIAGNOSTIC TESTING AND LABORATORY VALUES: WBC 7.97, hemoglobin 15.5, platelet count is 250. INR is 1.0. Sodium 140, potassium 3.5, chloride 108, carbon dioxide 26, BUN 13, creatinine 0.81, glucose is 115. AST and ALT are normal. Troponin is negative. TSH is normal. Head and neck CTA showed no acute intracranial hemorrhage, no midline shift. There are no acute ischemic stroke. Subcentimeter hypodensity of the left cerebellar hemisphere suggestive of an age-indeterminate lacunar infarct. Mild atherosclerotic vascular disease. No aneurysm, dissection, high-grade stenosis or arterial occlusion. Maxillary sinusitis. ASSESSMENT AND PLAN: A pleasant 55-year-old male with a history of insulin resistance, hypertension, and hyperlipidemia, presenting with an acute vestibular syndrome. Differential diagnosis certainly includes a posterior circulation infarct versus a peripheral etiology such as vestibular neuritis. He does have a prior history of similar symptoms, although the duration was much shorter. No focal neurological findings on examination. The patient has no nystagmus this afternoon in the Emergency Department on my examination. Head and neck CTA performed in the Emergency Department showed a potential age- indeterminate stroke in the cerebellum. Recommend starting aspirin 81 mg daily for now. Recommend an MRI of the brain with and without contrast for further evaluation. Symptoms were acute in onset, so should suspect some diffusion weighted imaging findings if this is indeed an acute to subacute stroke in the cerebellum. If MRI is negative, it is likely suggestive of a more peripheral etiology and the finding in the cerebellum is likely incidental. Recommend checking a lipid panel as well as hemoglobin A1c. Recommend a transthoracic echocardiogram with shunt study. We will allow for permissive hypertension at this point until MRI is completed. Treat for systolic blood pressure greater than 220 and diastolic blood pressure greater than 110 mmHg. Physical therapy and occupational therapy. Neurology will continue to follow. . Job ID: [id number] [facility]
--- NOTE | 2021-04-24 06:45 | Electrocardiogram Report ---
Test Reason : Blood Pressure : / mmHG Vent. Rate : 072 BPM Atrial Rate : 072 BPM P-R Int : 178 ms QRS Dur : 092 ms QT Int : 390 ms P-R-T Axes : 057 031 032 degrees QTc Int : 427 ms Normal sinus rhythm Normal ECG When compared with ECG of 15-MAR-2012 09:51, No significant change was found Confirmed by Chato Parks ([id number]) on 04/24/2021 6:45:18 AM Referred By: Confirmed By:Chato Parks
[2021-04-24 08:40] LABS: Basophils # (auto) 0.01 K/uL (0-0.2); Basophils % (auto) 0.1 %; Eosinophils # (auto) 0.09 K/uL (0-0.5); Eosinophils % (auto) 1.3 %; Hemoglobin 14.6 g/dL (14.0-18.0); Immature Granulocytes # (auto) 0.02 K/uL (0.00-0.02); Immature Granulocytes % (auto) 0.3 %; Lymphocytes # (auto) 2.39 K/uL (1.2-3.4); Lymphocytes % (auto) 34.1 %; Mean Corpuscular Hgb Conc 34.8 g/dL (32-36); Mean Corpuscular Volume 92.1 fL (80-100); Mean Platelet Volume 9.6 fL (7.4-10.4); Monocytes # (auto) 0.56 K/uL (0.11-0.59); Neutrophils # (auto) 3.94 K/uL (1.4-6.5); Neutrophils % (auto) 56.2 %; Platelet Count 223 K/uL (130-400); RDW Coefficient of Variation 13.5 % (11.5-14.5); RDW Standard Deviation 45.4 fL (36.4-46.3); Red Blood Count 4.56 M/uL (4.7-6.1); White Blood Count 7.01 K/uL (4.8-10.8)
[2021-04-24] MEDS ORDERED: ASPIRIN 81 MG ECTAB PO SCH (09:00)
[2021-04-24] MEDS ORDERED: ATORVASTATIN 40 MG TAB PO SCH (09:00)
[2021-04-24] MEDS ORDERED: CLOPIDOGREL BISULFATE 75 MG TAB PO SCH (09:00)
[2021-04-24 09:08] LABS: BUN Creatinine Ratio 15.8 (10-20); Calcium 8.9 mg/dl (8.5-10.1); Creatinine Clr Calc Pharmacy 118.1 ml/min; Est GFR (African American) 114.6 ml/min; Est GFR (Non-African American) 98.9 ml/min; Potassium 3.9 mmol/L (3.5-5.1)
[2021-04-24 09:39] LABS: Estimated Average Glucose 131 mg/dl; Hemoglobin A1C 6.2 % (4.5-5.6)
--- NOTE | 2021-04-24 11:54 | Hospitalist Progress Note ---
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 In ER Vitals stable. CTA head/neck: Subcentimeter hypodensity of the left cerebellar hemisphere is suggestive of an age-indeterminate lacunar infarct. -No arrhythmias on monitor -Lipid profile is unremarkable and hemoglobin A1c is minimally high at 6.2 -MRI of the brain did not show any stroke except the wall findings in the cerebellum and possible microvascular disease -echo with bubble study has been pending -start statin, aspirin, plavix -Appreciate neurology input and recommendation -Likely discharge this afternoon (3) HTN (hypertension): -Hold home lisinopril/HCTZ at this time and allow for permissive hypertension (4) HLD (hyperlipidemia): -Lipid panel in a.m.-unremarkable -Starting atorvastatin and will continue (5) Pre-diabetes: A1c: 6.1 in 02/03/2021 -A1c in a.m. DVT Prophylaxis -SCDs Full Code as per discussion with pt Follows with Dr Lechuga for routine care Admission and Anticipated Discharge Date Admission Date: April 23, 2021 Subjective 04/24/2021 The patient was seen and examined in medical telemetry unit He has been feeling much better since admission Denies any symptoms of headache, blurred vision, problem with speech and or swallowing, no numbness or tingling or any weakness involving any side of the body Review of Systems Review of Systems: All systems reviewed and are unremarkable except as noted below Neurologic: no unsteadiness, no localized weakness, no generalized weakness, no numbness, no paresthesia and no headache(s) Physical Exam Physical Exam: Lying in bed comfortably Constitutional: well developed, well nourished and + obese Eyes: PERRL, conjunctivae normal, anicteric sclerae ENMT: external ear and nose normal, oropharynx normal Neck: trachea midline, no thyromegaly Respiratory: no respiratory distress Auscultation: lungs clear to auscultation bilaterally Cardiovascular: Rate/Rhythm: regular rate and regular rhythm Heart Sounds: no murmur Extremities: no edema Gastrointestinal (Abdomen): Inspection/Auscultation: normal bowel sounds; abdomen not distended Percussion/Palpation: abdomen soft; abdomen nontender Musculoskeletal: No acute arthritis in any joint Neurologic: Alert, awake and oriented x3. No focal sensory no motor deficit appreciated Psychiatric: A+Ox3, euthymic affect Lymphatic: no cervical or axillary lymphadenopathy Results & Data Results & Data ([facility]) Vital Signs (Past 12 Hours) Vital Signs Temp Pulse Pulse Resp BP BP Pulse Ox 04/24/21 08:12 36.8 C 60 20 117/74 94 04/24/21 07:15 56 L 04/24/21 03:51 36.6 C 76 20 152/90 H 98 04/24/21 00:00 58 L Laboratory Results Short CBC 04/24/21 Range/Units 08:24 WBC 7.01 (4.8-10.8) K/uL Hgb 14.6 (14.0-18.0) g/dL Hct 42.0 (42-52) % Plt Count 223 (130-400) K/uL BMP 04/23/21 04/24/21 11:36 08:24 Sodium 140 142 Potassium 3.5 3.9 Chloride 108 H 110 H Carbon Dioxide 26 27 BUN 13 13 Creatinine 0.81 0.82 Glucose 115 H 88 Calcium 9.3 8.9 Cardiac Enzymes 04/23/21 Range/Units 11:36 Troponin I < 0.015 (0-0.045) ng/ml Liver Function 04/23/21 Range/Units 11:36 Total Bilirubin 0.2 (0.2-1) mg/dl AST 23 (15-37) U/L ALT 36 (12-78) U/L Alkaline Phosphatase 61 (45-117) U/L Albumin 3.9 (3.4-5.0) gm/dl Medications Administered Current Inpatient Medications Acetaminophen (Acetaminophen 325 Mg Tab) 650 mg PO Q4H PRN PRN Reason: Pain or Fever Stop: 05/23/21 17:16 Aspirin (Aspirin 81 Mg Ectab) 81 mg PO QAM [facility] Stop: 05/24/21 08:59 Last Admin: 04/24/21 08:34 Dose: 81 mg Documented by: Atorvastatin Calcium (Atorvastatin 40 Mg Tab) 40 mg PO [facility] Stop: 05/24/21 08:59 Last Admin: 04/24/21 08:34 Dose: 40 mg Documented by: Clopidogrel Bisulfate (Clopidogrel Bisulfate 75 Mg Tab) 75 mg PO [facility] Stop: 05/24/21 08:59 Last Admin: 04/24/21 08:34 Dose: 75 mg Documented by: Labetalol HCl (Labetalol Hcl Iv 5 Mg/Ml 20ml) 10 mg IV Q6H PRN PRN Reason: hypertension Stop: 05/23/21 17:16 Miscellaneous Information (Pharmacist Discharge Med Rec Consult) 1 ea N/A UD PRN PRN Reason: Consult Stop: 05/23/21 17:16 Ondansetron HCl (Ondansetron Inj 2 Mg/Ml 2 Ml Vial) 4 mg IV Q6H PRN PRN Reason: Nausea Stop: 05/23/21 17:16 (1) CVA (cerebral vascular accident) CVA mechanism: unspecified Qualified Code(s): I63.9 - Cerebral infarction, unspecified (2) HTN (hypertension) Hypertension type: unspecified Qualified Code(s): I10 - Essential (primary) hypertension
[2021-04-24] MEDS ORDERED: STROKE PATIENT DISCHARGE STA (15:53)
--- NOTE | 2021-04-24 16:16 | Pharmacy Report ---
Pharmacist Stroke Counseling - Date of Service April 24, 2021 - Scope: Pharmacy has been consulted to provide medication discharge counseling for this patient admitted with [ischemic stroke] [hemorrhagic stroke] [transient ischemic attack] as per the Pharmacist Discharge Counseling for Stroke Patients Protocol . - Medications on Discharge: Home Medications Medication Instructions Recorded Confirmed losartan-hydrochlorothiazide 1 tab PO DAILY 04/23/21 04/23/21 New Rx's Medication Instructions Recorded aspirin 81 mg PO QAM #30 tab 04/24/21 atorvastatin 40 mg PO QAM #30 tab 04/24/21 - Action: The above medications, specifically ones for stroke treatment/prophylaxis, have been reviewed in detail with the patient and/or patient termite control service representative(s) prior to discharge. This includes indication, common adverse reactions, drug interactions, and medication administration. Medication counseling has been employed using the teach-back method to ensure understanding. - Outcome: The patient and/or patient termite control service representative(s) have demonstrated understanding of the medications. Additional comments: - Recommended Aspirin EC to improve tolerability/GI effects, however, patient has problems swallowing pills. He prefers to use the chewable formulation. I counseled him to take this medication with food. Reviewed s/s of bleeding. -Patient asked how long he should take his new medications (aspirin and atorvastatin). I informed him that he should continue the medications daily until instructed to stop them and discuss duration of therapy with his PCP (he has an appt in May). I explained that as of right now, the duration is indefinite. Thank you for allowing pharmacy to be involved in the care of this patient. Please call [phone] with any additional questions
--- NOTE | 2021-04-24 16:52 | Discharge Summary ---
Date of Service April 24, 2021 Admission HPI Per Admitting Provider Patient is 35-year-old male with PMH HTN, HLD, prediabetes, IBS presented to ER with complaint of dizziness started yesterday. Patient states that 8 PM yesterday he started with dizziness described as room spinning. States room was spinning so much he felt that his vision was blurry. Reports was having trouble ambulating as he dizzy and was swaying [id number] with walking. Symptoms lasted throughout the night and into today and presented to ER. Patient states this morning had mild headache which has since resolved. Denies any head injury or trauma. Denies any associated vomiting. 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 Denies recreational drug use, other OTC medication use. Patient reports in November had an episode of vertigo type dizziness which did not last very long and self resolved. Denies fever/chills, diaphoresis, vomiting, diarrhea, constipation, syncope, vision loss, neck pain, CP, SOB, orthopnea, palpitations, cough, sore throat, choking, otalgia, rhinorrhea, abdominal pain, paresthesias, weakness, extremity weakness, extremity edema, rashes, urinary symptoms. Admission Exam Per Admitting Provider Physical Exam: General: no distress, WDWN Head: normocephalic, atraumatic Eyes: PERRL, EOM's intact, conjunctiva non-injected, anicteric ENT: normal inspection external ears, nose, mucous membranes moist Neck: supple, trachea midline Lungs: clear, no respiratory distress, no wheezing/rhonchi/rales CV: RRR, no murmur, no pretibial edema Abd: normal BS, soft, non-tender Ext: no cyanosis, no calf tenderness Neuro: A&O x 3, normal affect, No nystagmus noted at this time, Facial sensation is intact and symmetric, The face is strong and symmetric, Hearing grossly intact, Soft palate elevates symmetrically, no dysarthria, Shoulder shrug intact, Tongue is midline, normal movement, no fasciculations. Muscle tone normal. 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 cerebellum Discharge Exam Constitutional well developed, well nourished and + obese Eyes PERRL, conjunctivae normal, anicteric sclerae ENMT external ear and nose normal, oropharynx normal Neck trachea midline, no thyromegaly Respiratory no respiratory distress Auscultation: lungs clear to auscultation bilaterally Cardiovascular Rate/Rhythm: regular rate and regular rhythm Heart Sounds: no murmur Extremities: no edema Gastrointestinal (Abdomen) Inspection/Auscultation: normal bowel sounds; abdomen not distended Percussion/Palpation: abdomen soft; abdomen nontender Psychiatric A+Ox3, euthymic affect Lymphatic no cervical or axillary lymphadenopathy Discharge Data Allergies Allergy/AdvReac Type Severity Reaction Status Date / Time No Known Allergies Allergy Unverified 04/23/21 12:07 Consultations 04/23/21 13:33 ED Decision to Admit Stat 04/23/21 17:17 Consult Neurology Routine Ordered Studies 04/23/21 12:11 CT angio head wo/w Stat CT angio neck with con Stat 04/23/21 17:17 MR brain wo/w con Routine Hospital Course (1) Dizziness: This is his second episode of dizziness which is lasting more than 24 hours Dizziness is worse with movement of the head and has been difficult for him to function Denies any other neurological symptoms associated with it 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 In ER Vitals stable. CTA head/neck: Subcentimeter hypodensity of the left cerebellar hemisphere is suggestive of an age-indeterminate lacunar infarct. -No arrhythmias on monitor -Lipid profile is unremarkable and hemoglobin A1c is minimally high at 6.2 -MRI of the brain did not show any stroke except the wall findings in the cerebellum and possible microvascular disease -echo with bubble study has been pending -start statin, aspirin, plavix -Appreciate neurology input and recommendation -Likely discharge this afternoon (3) HTN (hypertension): -Hold home lisinopril/HCTZ at this time and allow for permissive hypertension (4) HLD (hyperlipidemia): -Lipid panel in a.m.-unremarkable -Starting atorvastatin and will continue (5) Pre-diabetes: A1c: 6.1 in 02/03/2021 -A1c in a.m. DVT Prophylaxis -SCDs Full Code as per discussion with pt Follows with Dr Lechuga for routine care Total Time Total Time Spent Total Time Spent (In Minutes): 35 minutes Total Time Includes: Examination of the Patient, Discharge Planning, Medication Reconciliation and Communication With Other Providers Discharge Plan Discharge Items Patient Disposition: Home - Self-Care Reason For Visit: CVA Discharge Diagnosis: Dizziness likely due to inner ear disease-resolved, hypertension, hyperlipidemia, history of age indeterminate lacunar infarct in left cerebellum Condition on Discharge: Good Activity: Resume your previous activity Non-emergency contact: Primary Care Provider Call non-emergency contact if: you have any medication questions and your symptoms worsen Follow-up/Referrals: Sebastián Lechuga MD [Primary Care Provider] - (Date & Time 05/01/2021 10:20 AM Provider Sebastián Lechuga MD [facility] ) Diet: Regular and Low Sodium (2gm) Addtl Attending Provider Instructions: Please take precaution to avoid falls if you have any more dizziness Continue to take baby aspirin regularly Atorvastatin was prescribed to prevent further stroke Pending Studies at Discharge: No Stand-Alone Forms: Medications to Prevent Stroke, [employer]rid[employer], Smoking Cessation Medications and DC Order Prescriptions: New atorvastatin 40 mg Tablet 40 mg PO QAM Qty: 30 RF: 0 aspirin 81 mg Tablet,Delayed Release (Dr/Ec) 81 mg PO QAM Qty: 30 RF: 0 Continued losartan-hydrochlorothiazide 100-12.5 mg tablet 1 tab PO DAILY RF: 0 Discharge Orders: Discharge Order (Routine); Ordered 04/24/21 Ordered By: Becky Martinez/Other Patient Handouts: Cholesterol Medicines, Understanding Food and Cholesterol, Vertigo Staying Safe Admission Data Admit Date/Time: 04/23/21 13:50 Attending Provider: Becky Escalona Admit Provider: Francois Cardona Primary Care Provider: Sebastián Lechuga Other Providers: Francois Cardona ; Shan Maddne Other Interventions: Discharge Summary Assessment (RN) Last Done: 04/24/21 15:39
--- NOTE | 2021-04-24 17:07 | Progress Notes ---
DATE OF PROGRESS NOTE: , 04/24/2021. DISTRIBUTION: None. CHIEF COMPLAINT: Vertigo. SUBJECTIVE: The patient was seen and examined at bedside this afternoon. His father is at bedside. The patient reports symptoms have resolved. He is back to baseline. He denies any further vertigo. He is feeling well and is ready to go home. MRI of the brain was completed yesterday evening. He had no acute events overnight. PHYSICAL EXAMINATION: VITAL SIGNS: Blood pressure 160/94, pulse of 71, temperature 36.7 degrees Celsius, oxygen saturation s 96% on room air. NEUROLOGIC: The patient is awake, alert, oriented to person, place, and time. Speech is clear. Com prehension is intact. Eyes are midline. Extraocular muscles are intact. Sensation is intact. No fa cial asymmetry. Muscle strength is 5/5. He has no tremor or myoclonic jerks. No ataxia with finger -to-nose testing or [id number] testing. Reflexes show a negative Caitlin sign and no ankle clonus . Gait is normal. DIAGNOSTIC TESTING AND LABORATORY VALUES: MRI of the brain showed no acute intracranial abnormality. No evidence of acute ischemic stroke. Scattered T2 hyperintensity seen within the periventricular and subcortical white matter, nonspecific, but favor microvascular ischemic disease. Old punctate la cunar infarct within the left cerebellar hemisphere. Transthoracic echocardiogram showed a small trivial PFO. There was no mural thrombus. Ejection frac tion was normal. ASSESSMENT AND PLAN: A pleasant 55-year-old male with a history of hypertension, admitted with acute vestibular syndrome. Etiology likely vestibular neuritis. MRI of the brain was reviewed and showed no evidence of acute ischemic stroke. There was an incidentally noted left cerebellar ischemic stro ke. This is likely a silent infarct. Recommend aspirin 81 mg daily upon discharge. I did advise patient to check his blood pressures at home. Blood pressure is #1 modifiable risk factor for stro ke. Otherwise, the patient can be discharged to home. He can follow up with his PCP after discharge . I did provide him with my contact information should he have any questions or concerns. Job ID: [id number]
== END 2021-04-24 16:52 | disposition home or self-care (01) | DRG 149 ==
LOC: ED 11:03 → SUATTDRO 13:50 → 2N 13:50